=== PATIENT | male | born 1970 | race African-American/Black ===

== ENCOUNTER 2023-05-17 21:05 | Emergency (ER) | payer SELFPAY ==
[~2023-05-17] VITALS: Ht 172.7 cm; Wt 54.4 kg
[2023-05-17 21:33] VITALS: BP 134/76; TEMP 98.1; O2SAT 98
[2023-05-17] MEDS ORDERED: NAPR-1164 PO (21:34)
== END 2023-05-17 21:51 | disposition home or self-care (01) ==
LOC: ER 21:10
DX: M19.90 Unspecified osteoarthritis, unspecified site (principal); Z76.0 Encounter for issue of repeat prescription